=== PATIENT | female | born 1950 | race Caucasian/White ===

== ENCOUNTER 2018-05-24 14:18 | Emergency (ER) | payer MEDICARE, OTHER ==
[2018-05-24] MEDS: LIDOCAINE/MYLANTA 40 ML BTL PO (14:55)
[2018-05-24] MEDS: ONDANSETRON (ODT) 4 MG TAB ODT (16:19)
== END 2018-05-24 16:57 | disposition home or self-care (01) ==
LOC: E/R 14:18
DX: J02.9 Acute pharyngitis, unspecified (principal); I10 Essential (primary) hypertension; R40.2142 Coma scale, eyes open, spontaneous, at arrival to emergency department; R40.2252 Coma scale, best verbal response, oriented, at arrival to emergency department; R40.2362 Coma scale, best motor response, obeys commands, at arrival to emergency department
CPT/HCPCS: 70360; 71045; 74018; 99284-25